=== PATIENT | female | born 1985 | race Caucasian/White ===

== ENCOUNTER 2019-03-02 16:05 | Emergency (ER) | payer BC, SELFPAY ==
[2019-03-02 16:06] VITALS: BP 150/108; PULSE 104; RESP 16; TEMP 36.9; O2SAT 100; BMI 46.0
[2019-03-02 16:27] VITALS: BP 137/71; PULSE 76; RESP 18; O2SAT 99
[2019-03-02 17:11] VITALS: BP 122/87; PULSE 78; RESP 18; O2SAT 100
--- NOTE | 2019-03-02 17:47 | NURSING ---
pt stated to me that she did not want IV medication. pt states that she wants PO meds and to be discharged.
--- NOTE | 2019-03-02 17:59 | ED.VISSUMM ---
- ER Visit Summary Date of Service: 03/02/19 Chief Complaint: Migraine headache History of Present Illness: The patient is a 33 F presents with migraine headache that has been constant for the past 2 days. Patient states this is similar to prior migraine headaches. Patient states the pain is dull. Patient states pain is localized to the right side of her head. Patient admits to some scotoma prior to her headache beginning. Patient denies any fevers or chills. Patient denies any nausea or vomiting. Patient denies any photophobia. Patient denies any paresthesias or weakness. Physical Examination: Vital signs are stable. Patient is afebrile. Patient is in no acute distress. Oral mucosa is pink and moist. Neck is supple. Trachea is midline. There is no JVD. There is no tenderness over the temporal artery. Heart was regular rate and rhythm. Lungs are clear and equal bilaterally. Abdomen is soft and nontender. Cranial nerves II through XII are intact. There are no focal motor or sensory deficits noted. Emergency Department Course and Treatment: Patient was initially ordered IV fluids with Reglan, Benadryl, and Toradol. Patient did not want to have IV fluids and wanted only oral medications. Patient was given oral Benadryl, oral Reglan, and oral Naprosyn. Patient was instructed to rest in a dark quiet room. Patient was instructed to follow-up with her primary care physician in 5 to 7 days. Patient understood and was agreeable with the plan. All questions were answered. Disposition: Discharge home Impression: Migraine headache This note was generated with [email or web address] dictation software. It may contain incorrect words, spelling, and punctuation that were not noted in review of the chart prior to signing ED Disposition - Plan for ED Patient: Disposition: Home or Assisted Living Diagnosis: Migraine headache Instructions: ED, Migraine (Classical) Referrals: Deep Guerra MD [Primary Care Provider] - 3-5 Days
[2019-03-02] MEDS: Naproxen 250 MG Tablet 500 MG PO (18:07)
[2019-03-02] MEDS: Metoclopramide 10 MG Tablet PO (18:07)
[2019-03-02] MEDS: DiphenhydrAMINE 25 MG Capsule PO (18:08)
[2019-03-02 18:14] VITALS: BP 137/78; PULSE 87; RESP 17; O2SAT 98
== END 2019-03-02 18:14 | disposition home or self-care (01) ==
PROVIDERS: Emergency Provider Emergency Medicine; Family Provider Family Medicine; PCP Family Medicine
DX: G43.909 Migraine, unspecified, not intractable, without status migrainosus (principal)
CPT/HCPCS: 99283